=== PATIENT | female | born 1960 | race Caucasian/White ===

== ENCOUNTER 2025-09-13 22:40 | Emergency (ER) | payer MEDICARE ==
[2025-09-14] MEDS ORDERED: Bacitracin 1 PK ONE (02:01)
== END 2025-09-14 02:10 | disposition home or self-care (01) ==
LOC: CSHERS 22:40
DX: S61.211A Laceration without foreign body of left index finger without damage to nail, initial encounter (principal); E11.9 Type 2 diabetes mellitus without complications; Z79.899 Other long term (current) drug therapy; Z79.01 Long term (current) use of anticoagulants; Z79.82 Long term (current) use of aspirin; W45.8XXA Other foreign body or object entering through skin, initial encounter
CPT/HCPCS: 12001; 99282